=== PATIENT | female | born 1960 | race Caucasian/White ===

== ENCOUNTER → 2019-11-24 13:56 | Outpatient (CLI) | payer OTHER, SELFPAY ==
--- NOTE | ~2019-11-24 | MM_ITS ---
EXAMINATION: MM scrn fish implant BI w jeanne HISTORY: Screening mammogram TECHNIQUE: Craniocaudal and mediolateral oblique 3-D tomosynthesis images with implant displacement a nd synthetic 2-D images were generated. Craniocaudal and mediolateral oblique views of the breasts wi thout implant displacement were obtained using full field digital mammography. CAD analysis was submi tted and interpreted. COMPARISON: 09/23/2018, 06/03/2017, 05/16/2016 BREAST PARENCHYMAL COMPOSITION: There are scattered areas of fibroglandular density. FINDINGS: There is no evidence of suspicious mass, calcification, or architectural distortion to sugg est malignancy in either breast. There has been no suspicious interval change. IMPRESSION: 1. No mammographic evidence of malignancy. 2. Recommend routine screening mammography in one year. BI-RADS Category 1: Negative Reviewed, dictated and finalized at location A.
== END ==
PROVIDERS: Visit Provider Obstetrics & Gynecology
DX: Z12.31 Encounter for screening mammogram for malignant neoplasm of breast (principal)
CPT/HCPCS: 77063; 77067

== ENCOUNTER → 2020-12-06 11:13 | Outpatient (CLI) | payer OTHER, SELFPAY ==
--- NOTE | ~2020-12-06 | MM_ITS ---
EXAMINATION: MM scrn fish implant BI w jeanne HISTORY: Screening mammogram TECHNIQUE: Craniocaudal and mediolateral oblique 3-D tomosynthesis images with implant displacement a nd synthetic 2-D images were generated. Craniocaudal and mediolateral oblique views of the breasts wi thout implant displacement were obtained using full field digital mammography. CAD analysis was submi tted and interpreted. COMPARISON: 11/24/2019, 09/23/2018, 06/03/2017 bilateral implant digital screening mammogram examinations BREAST PARENCHYMAL COMPOSITION: There are scattered areas of fibroglandular density. FINDINGS: Status post bilateral augmentation mammoplasty. There is no evidence of suspicious mass, ca lcification, or architectural distortion to suggest malignancy in either breast. There has been no ragland spicious interval change. IMPRESSION: 1. No mammographic evidence of malignancy. 2. Recommend routine screening mammography in one year. BI-RADS Category 1: Negative Reviewed, dictated and finalized at location A.
== END ==
PROVIDERS: Visit Provider Obstetrics & Gynecology
DX: Z12.31 Encounter for screening mammogram for malignant neoplasm of breast (principal)
CPT/HCPCS: 77063; 77067

== ENCOUNTER → 2022-02-20 14:22 | Outpatient (CLI) | payer OTHER, SELFPAY ==
--- NOTE | ~2022-02-20 | MMUS_ITS ---
EXAMINATION: MM diag fish implant BI w jeanne, US breast LT complete HISTORY: Left nipple inversion since approximately May 2020 TECHNIQUE: Bilateral full field and left spot ML, MLO and CC 3-D tomosynthesis images were performed and synthetic 2-D images were generated. CAD analysis was submitted and interpreted. High resolution complete left breast ultrasound examination including all 4 quadrants and subareolar area was perform ed. COMPARISON: 12/06/2020, 11/24/2019, 09/23/2018 bilateral implant screening mammogram examinations BREAST PARENCHYMAL COMPOSITION: There are scattered areas of fibroglandular density. FINDINGS: MAMMOGRAPHIC FINDINGS: Status post bilateral augmentation mammoplasty. No suspicious mass or architectural distortion, malignant calcification, skin thickening or retractio n or significant new or developing density is detected. ULTRASOUND: No suspicious solid lesion or shadowing or other significant sonographic abnormality of the left natasha st is detected. IMPRESSION: 1. No mammographic evidence of malignancy 2. Routine annual mammographic screening is recommended. BI-RADS Category 1: Negative Reviewed, dictated and finalized at location A. 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 No mammographic evidence of malignancy 2. Routine annual mammographic screening is recommended. BI-RADS Category 1: Negative
== END ==
PROVIDERS: PCP Family Medicine; Visit Provider Obstetrics & Gynecology
DX: N64.59 Other signs and symptoms in breast (principal)
CPT/HCPCS: 76641; 77062; 77066; G0279

== ENCOUNTER 2023-08-08 09:02 | Emergency (ER) | payer OTHER, SELFPAY ==
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
[2023-08-08 09:06] VITALS: BP 135/85; PULSE 76; RESP 18; TEMP 36.5; O2SAT 100
[2023-08-08] MEDS: ACETAMINOPHEN 500 MG TABLET 1000 MG PO (10:09)
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
--- NOTE | 2023-08-27 13:47 | PC.NURSE ---
LATE ENTRY This note is being entered to document information to the patient's record. The following information was omitted on [08/08/23], by [shoaib Cee]. Short arm volar applied to right wrist prior to dc from ED
== END 2023-08-08 12:16 | disposition home or self-care (01) ==
PROVIDERS: Emergency Provider Physician Assistant; PCP Family Medicine
DX: S59.291A Other physeal fracture of lower end of radius, right arm, initial encounter for closed fracture (principal); M19.011 Primary osteoarthritis, right shoulder; M47.812 Spondylosis without myelopathy or radiculopathy, cervical region; V49.40XA Driver injured in collision with unspecified motor vehicles in traffic accident, initial encounter
CPT/HCPCS: 29125; 72050; 73030; 73110; 99284; A4565; A9270

== ENCOUNTER 2023-08-13 13:18 | Outpatient (CLI) | payer OTHER, SELFPAY ==
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
== END 2023-08-13 13:19 ==
LOC: MICIMG 13:19
PROVIDERS: PCP Obstetrics & Gynecology; Visit Provider Obstetrics & Gynecology
DX: Z78.0 Asymptomatic menopausal state (principal); R10.2 Pelvic and perineal pain
CPT/HCPCS: 76830; 76856

== ENCOUNTER 2023-09-30 15:49 | Outpatient (CLI) | payer OTHER, SELFPAY ==
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
== END 2023-09-30 15:50 | disposition home or self-care (01) ==
LOC: ANHIMG 15:54
PROVIDERS: PCP Family Medicine; Visit Provider Physician Assistant Surgical
DX: S52.531D Colles' fracture of right radius, subsequent encounter for closed fracture with routine healing (principal); X58.XXXD Exposure to other specified factors, subsequent encounter
CPT/HCPCS: 73110

== ENCOUNTER 2024-02-23 10:58 | Outpatient (CLI) | payer MEDICARE, SELFPAY ==
--- NOTE | ~2024-02-23 | MM_ITS ---
EXAMINATION: MM scrn fish implant BI w jeanne HISTORY: Screening mammogram TECHNIQUE: Craniocaudal and mediolateral oblique 3-D tomosynthesis images with implant displacement a nd synthetic 2-D images were generated. Craniocaudal and mediolateral oblique views of the breasts wi thout implant displacement were obtained using full field digital mammography. CAD analysis was submi tted and interpreted. COMPARISON: Comparison to multiple prior studies sequentially, with oldest reviewed study dated 05/16. BREAST PARENCHYMAL COMPOSITION: Not dense: There are scattered areas of fibroglandular density. FINDINGS: There are bilateral subpectoral implants which appear to be partially collapsed.. There is no evidence of suspicious mass, calcification, or architectural distortion to suggest malignancy in e ither breast. There has been no suspicious interval change. IMPRESSION: 1. No mammographic evidence of malignancy. 2. Recommend routine screening mammography in one year. BI-RADS Category 1: Negative Reviewed, dictated and finalized at location B. 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
== END 2024-02-23 10:59 | disposition home or self-care (01) ==
LOC: MICIMG 11:03
PROVIDERS: PCP Obstetrics & Gynecology; Visit Provider Obstetrics & Gynecology
DX: Z12.31 Encounter for screening mammogram for malignant neoplasm of breast (principal)
CPT/HCPCS: 77063; 77067

== ENCOUNTER 2024-04-12 10:26 | Outpatient (CLI) | payer MEDICARE, OTHER, SELFPAY ==
--- NOTE | ~2024-04-12 | MR_ITS ---
EXAMINATION: MR breast BI wo/w con INDICATION: Implant rupture TECHNIQUE: Axial VIBRANT pre and dynamic post contrast, Sagittal VIBRANT post contrast, Axial T2 STIR ASSET COMPARISON: Mammography dated 02/23/2024 CONTRAST: Multihance, 12 cc BREAST COMPOSITION: Almost entirely fat FINDINGS: RIGHT BREAST: There is minimal background parenchymal enhancement. No abnormal enhancement is present after contrast administration. No pathologically enlarged axillary or internal mammary lymph nodes a re identified. Subpectoral implant present, without evidence for intracapsular or extracapsular ruptu re. LEFT BREAST: There is minimal background parenchymal enhancement. No abnormal enhancement is present after contrast administration. No pathologically enlarged axillary or internal mammary lymph nodes ar e identified. Subpectoral implant present, without evidence for intracapsular or extracapsular ruptur e. IMPRESSION: No evidence for malignancy. No evidence for intracapsular or extracapsular implant rupture. BI-RADS Category 1: Negative Reviewed, dictated and finalized at [facility]. 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
== END 2024-04-12 10:27 | disposition home or self-care (01) ==
PROVIDERS: PCP Obstetrics & Gynecology; Visit Provider Nurse Practitioner
DX: N64.59 Other signs and symptoms in breast (principal)
CPT/HCPCS: 77049; A9577; C8908

== ENCOUNTER 2024-08-10 10:27 | Outpatient (CLI) | payer MEDICARE, OTHER, SELFPAY ==
--- NOTE | ~2024-08-10 | DEXA_ITS ---
Bone Density Report Name: ROOSEVELT KELLY Age: 64 Sex: Female Ethnicity: White Date of : 1960 Indication: postmenopausal; screening for osteoporosis; height loss; Referring Provider: Jose Eduardo, Deborah Laird Study: Bone densitometry was performed. Exam Date: August 10, 2024 Accession number: [id number] Bone Density: Region BMD T-score Z-score Classification AP Spine(L1-L4) 0.895 -1.4 0.4 Osteopenia Femoral Neck (Left) 0.643 -1.9 -0.3 Osteopenia Total Hip (Left) 0.816 -1.0 0.2 Normal Femoral Neck (Right) 0.616 -2.1 -0.6 Osteopenia Total Hip (Right) 0.789 -1.3 0.0 Osteopenia Total Hip Mean 0.802 -1.2 0.1 Osteopenia World Health Organization criteria for BMD impression classify patients as: Normal (T-score at or above -1.0), Osteopenia (T-score between -1.0 and -2.5), or Osteoporosis (T-score at or below -2.5). 10-year Fracture Risk(1): Major Osteoporotic Fracture 11% Hip Fracture 1.7% Reported Risk Factors: [place] (), Neck BMD=0.616, BMI=25.0 (1) FRAX(R) Version 3.08. Fracture probability calculated for an untreated patient. Fracture probability may be lower if the patient has received treatment. Previous Exams: -- Region Exam Age BMD T-score BMD Change BMD Change Date g/cm2 vs Baseline vs Previous -- AP Spine (L1-L4) 08/10/2024 64 0.895 -1.4 -5.1%* -9.7%* 05/16/2016 56 0.991 -0.5 5.1%* 4.7%* 11/16/2014 54 0.947 -0.9 0.4% -6.3%* 11/13/2012 52 1.011 -0.3 7.2%* 7.2%* 05/23/2010 50 0.943 -0.9 Total Hip(Left) 08/10/2024 64 0.816 -1.0 4.6%* -7.5%* 05/16/2016 56 0.881 -0.5 13.0%* 8.3%* 11/16/2014 54 0.814 -1.0 4.4%* -2.9% 11/13/2012 52 0.838 -0.9 7.5%* 7.5%* 05/23/2010 50 0.780 -1.3 Total Hip(Right) 08/10/2024 64 0.789 -1.3 1.3% -6.5%* 05/16/2016 56 0.844 -0.8 8.4%* 6.7%* 11/16/2014 54 0.791 -1.2 1.6% -6.1%* 11/13/2012 52 0.842 -0.8 8.1%* 8.1%* 05/23/2010 50 0.778 -1.3 -- *Denotes significance at 95% confidence level, LSC for AP Spine = 0.022 g/cm2, LSC for Total Hip = 0.027 g/cm2 Clinical Information Provided by Patient: Has used the following medications: Vitamin D, HRT insert Has the following medical conditions: melanoma twice Patient maximum height was 64 Menopause Age: 45 No regular weight bearing exercise Drinks caffeinated beverages Onset of menses at age 16 Number of children 2 Impression: The patient has low bone mass, based on the Right Femoral Neck T-score. The patient has an estimated ten-year risk of hip fracture of 1.7% and an estimated ten-year risk of major fracture of 11%, based on the WHO FRAX algorithm. The BMD for the AP Spine (L1-L4) decreased, changing by -9.7% since the last DXA exam. The BMD for the Total Hip(Left) decreased, changing by -7.5% since the last DXA exam. The BMD for the Total Hip(Right) decreased, changing by -6.5% since the last DXA exam. Discussion: BONE DENSITY IS LOW AT ONE OR MORE SKELETAL SITES. This patient's lowest T-score is low at one or more skeletal sites. It meets the World Health Organization's (WHO) criteria for “low bone mass” (T-score between -1.0 and -2.5). The patient's 10-year risk of fracture as calculated by FRAX is less than the threshold where pharmacological therapy is recommended by the National Osteoporosis Foundation (NOF). However, all treatment decisions require clinical judgment and consideration of individual patient factors, including patient preferences, comorbidities, previous drug use, risk factors not captured in the FRAX model (e.g., frailty, falls, vitamin D deficiency, increased bone turnover, interval significant decline in bone density) and possible under or overestimation of fracture risk by FRAX. The patient should follow a healthful lifestyle (good nutrition with adequate calcium and vitamin D, and appropriate weight-bearing exercise). Follow-Up: Consider repeating this study in 2 years to reassess this patient's status, or sooner if there is some new clinical indication. Reported by: NENITA on 08/18/2024 12:49:00 PM. Reviewed, dictated and finalized at location A.
== END 2024-08-10 10:28 | disposition home or self-care (01) ==
LOC: MICIMG 10:30
PROVIDERS: PCP Family Medicine; Visit Provider Obstetrics & Gynecology
DX: M85.89 Other specified disorders of bone density and structure, multiple sites (principal); Z78.0 Asymptomatic menopausal state; Z13.820 Encounter for screening for osteoporosis
CPT/HCPCS: 77080

== ENCOUNTER 2024-09-28 11:23 | Outpatient (CLI) | payer MEDICARE, OTHER, SELFPAY ==
--- NOTE | 2024-09-28 | ECG_ITS ---
Test Date: 2024-09-28 12:11:21 Measurements Intervals [place] Rate: 78 P: 40 UT: 192 QRS: 18 QRSD: 78 T: 42 QT: 380 QTc: 433 Interpretive Statements SINUS RHYTHM WITH OCCASIONAL VENTRICULAR PREMATURE COMPLEXES POSSIBLE LEFT ATRIAL ENLARGEMENT [-0.1mV P-WAVE IN V1/V2] No previous ECG available for comparison Electronically Signed On 09-28-2024 18:07:32 CDT by Chris Donahue
--- OUTSIDE RECORDS SUMMARY | 2024-09-28 11:31 | XMS_ITS | Encounter Summary ---
Author Organization [facility] Address [address] [place] [address] Care Team Providers Care Physician Executive Name Role Phone Unavailable Primary Care Provider Unavailabl e Encounter Details Date Type Department Care Team (Late st Contact Info) Description 09/16/2022 Lab Requisition [facility] - DermPath Lab [address] [place] [address] Liz Bear MD [address] [facility] [address] [place] [address] Social History Tobacco Use Types Packs/Day Years Used Date Smoking Tobacco: Never Assessed Comments Unknown Sex and Gender Information Value Date Recorded Sex Assigned at Not on file 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 Gender Identity Not on file Sexual Orientation Not on file documented as of this encounter Plan of Treatment Not on file documented as of this encounter Procedures Procedure Name Priority Date/Time Associated Diagnosis Comments DERMATOPATHOLOGY Routine 09/16/2022 2:46 PM CDT documented in this encounter Results * DERMATOPATHOLOGY (09/16/2022 2:46 PM CDT) Case Report Dermatopathology Report Case: [id number] Authorizing Provider: Liz Bear MD Collected: 09/16/2022 02:46 PM Ordering Location: [facility] DermPath Lab Received: 09/17/2022 12:01 PM Pathologist: Chanel Phillip MD Specimens: A) - Skin, right back B) - Skin, mid chest 4:16 PM CDT DERMATOPATHOLOGY LABORATORY Final Diagnosis Specimen A. SKIN, right back: LICHEN PLANUS-LIKE KERATOSIS (BENIGN LICHENOID KERATOSIS) (L82.1) Specimen B. SKIN, mid chest: LICHEN PLANUS-LIKE KERATOSIS (BENIGN LICHENOID KERATOSIS) (L82.1) 3 4:16 PM CDT DERMATOPATHOLOGY LABORATORY at 1616 CDT Clinical History A-B: R/O BCC; [place] 3 4:16 PM CDT DERMATOPATHOLOGY LABORATORY Gross Description Specimen A: Received is one formalin filled container labeled with the patient's name and designated right back. The specimen consists of a shave biopsy measuring 8x8x1 mm. Jar 0. Specimen B: Received is one formalin filled container labeled with the patient's name and designated mid chest. The specimen consists of a shave biopsy measuring 4x3x1 mm. Jar 0. 3 4:16 PM CDT DERMATOPATHOLOGY LABORATORY Microscopic Description Specimen A. SKIN, right back: The epidermis is mildly acanthotic. There is a lichenoid infiltrate with vacuolar changes of basilar keratinocytes and scattered necrotic keratinocytes. Specimen B. SKIN, mid chest: The epidermis is mildly acanthotic. There is a lichenoid infiltrate with vacuolar changes of basilar keratinocytes and scattered necrotic keratinocytes. 3 4:16 PM CDT DERMATOPATHOLOGY LABORATORY Disclaimer An external and internal positive and negative controls are appropriate for the histochemical, immunohistochemical and immunofluorescence stain(s) in this case (if any), except where stated explicitly. The performance characteristics of the stain(s) cited in this report were developed and its performance characteristic determined by the Dermatopathology Laboratory at [facility], directed by Dr. Letitia Story. These tests need not be, and therefore are not, approved by the [place] Food and Drug Administration. The tests are used for clinical purposes. Billing Codes Specimen Charges Stain Charges 83259 22126 1 1 3 4:16 PM CDT DERMATOPATHOLOGY LABORATORY Embedded Images 3 4:16 PM CDT DERMATOPATHOLOGY LABORATORY Pathology/Cytology TISSUE SPECIMEN FROM SKIN / Unknown 09/16/2022 2:46 PM CDT 09/17/2022 12:01 PM CDT Miscellaneous samples (specimen) TISSUE SPECIMEN FROM SKIN / Unknown 09/16/2022 2:46 PM CDT 09/17/2022 12:01 PM CDT Liz Bear MD LAB - PATHOLOGY/CYTOLOGY ORD ERABLES Final Result DERMATOPATHOLOGY LABORATORY [facility] - Department of Dermatology [facility] [address] [place] [address], [address] [phone] documented in this encounter Visit Diagnoses Not on filedocumented in this encounter
--- OUTSIDE RECORDS SUMMARY | 2024-09-28 11:31 | XMS_ITS | Encounter Summary ---
Author Organization [facility] Address [address] [place] [address] Care Team Providers Care Sales Apprentice Name Role Phone Unavailable Primary Care Provider Unavailabl e Encounter Details Date Type Department Care Team (Late st Contact Info) Description 09/14/2024 Lab Requisition [facility]ician Group - DermPath Lab [address] [facility], [facility] [place] [id number] Liz Bear MD [address] [facility] [address] [place] [address] Social History Tobacco Use Types Packs/Day Years Used Date Smoking Tobacco: Never Assessed Comments Unknown Sex and Gender Information Value Date Recorded Sex Assigned at Not on file Legal Sex Female 5:57 PM [employer] AUTHOR Gender Identity Not on file Sexual Orientation Not on file documented as of this encounter Plan of Treatment Not on file documented as of this encounter Procedures Procedure Name Priority Date/Time Associated Diagnosis Comments DERMATOPATHOLOGY Routine 09/14/2024 11:1 4 AM CDT documented in this encounter Results * DERMATOPATHOLOGY (09/14/2024 11:14 AM CDT) Case Report Dermatopathology Report Case: [id number] Authorizing Provider: Liz Bear MD Collected: 09/14/2024 11:14 AM Ordering Location: [facility] Physician [facility] - Received: 09/15/2024 07:40 AM DermPath Lab Pathologist: Jaye Story MD Specimen: Skin, right chest 4:03 PM CDT DERMATOPATHOLOGY LABORATORY Final Diagnosis Specimen A. SKIN, right chest: MALIGNANT MELANOMA, SUPERFICIAL SPREADING TYPE BRESLOW THICKNESS 0.3 MM, EDER LEVEL III PRESENT AT MARGIN (C43.59) (see microscopic description) Requires the attention of the treating physician. 4:[address] [facility] DERMATOPATHOLOGY LABORATORY at 1603 CDT Clinical History Nevus, SK; R/O MM 4:[address] [facility] DERMATOPATHOLOGY LABORATORY Gross Description Specimen A: Received is one formalin filled container labeled with the patient's name and designated right chest. The specimen consists of a shave biopsy measuring 8x6x1 mm. Jar 0. 4:[address] [facility] DERMATOPATHOLOGY LABORATORY Microscopic Description Specimen A. SKIN, right chest: There is a proliferation melanocytes distributed in an irregular pattern singly and in nests at all levels of the epidermis. In the dermis there are irregular nests and single scattered melanocytes. This lesion is present at the margin of the specimen. 4:[address] [facility] DERMATOPATHOLOGY LABORATORY Disclaimer An external and internal positive and negative controls are appropriate for the histochemical, immunohistochemical and immunofluorescence stain(s) in this case (if any), except where stated explicitly. The performance characteristics of the stain(s) cited in this report were developed and its performance characteristic determined by the Dermatopathology Laboratory at [facility], directed by Dr. Letitia Story. These tests need not be, and therefore are not, approved by the [place] Food and Drug Administration. The tests are used for clinical purposes. Billing Codes Specimen Charges Stain Charges 82526 1 4:[address] [facility] DERMATOPATHOLOGY LABORATORY Embedded Images 4:[address] [facility] DERMATOPATHOLOGY LABORATORY Synoptic Report INVASIVE MELANOMA OF THE SKIN: Biopsy INVASIVE MELANOMA OF THE SKIN: BIOPSY - All Specimens Protocol posted: 06/16/2024 SPECIMEN Procedure: Biopsy, shave Specimen Laterality: Right TUMOR Tumor Site: Skin of trunk: right chest Histologic Type: Low-cumulative sun damage (CSD) melanoma (including superficial spreading melanoma) Maximum Tumor (Breslow) Thickness (Millimeters): At least: 0.3 mm : tumor is present at the surgical margin; therefore, the final depth may exceed the current one. Ulceration: Not identified Anatomic (Eder) Level: At least level III: tumor is present at the surgical margin; therefore, the final depth may exceed the current one. Mitotic Rate: None identified Microsatellite(s): Cannot be determined Lymphatic and / or Vascular Invasion: Not identified Neurotropism: Not identified Tumor-Infiltrating Lymphocytes: Present, non-brisk Tumor Regression: Present MARGINS Margin Status for Melanoma: Melanoma in situ present at margin Margin(s) Involved by Melanoma In Situ: Peripheral 4:03 PM CDT DERMATOPATHOLOGY LABORATORY Pathology/Cytolo gy TISSUE SPECIMEN FROM SKIN / Unknown 09/14/2024 11:14 AM CDT 09/15/2024 7:40 AM CDT us Liz Bear MD LAB - PATHOLOGY/CYTOLOGY ORD ERABLES Final Result DERMATOPATHOLOGY LABORATORY [facility] - Department of Dermatology [facility] Medicine [address] [place] [address], [address] [phone] documented in this encounter Visit Diagnoses Not on filedocumented in this encounter
--- OUTSIDE RECORDS SUMMARY | 2024-09-28 11:31 | XMS_ITS | Encounter Summary ---
Author Organization [facility] Address [address] [place] [address] Care Team Providers Care Tobacco Stripper Name Role Phone Skyler De Paz MD Primary Care Provider [phone] Daniel Serrato MD Unavailable [phone] Sailaja Claudio APRN Primary Care Provider [phone]- [phone] Encounter Details Date Type Department Care Team (Late st Contact Info) Description 03/27/2023 8aweek Message Enc [facility] Medical Group Family & Internal Medicine [address] [address] [place], [facility] Provider Due for routine follow up Social History Tobacco Use Types Packs/Day Years Used Date Smoking Tobacco: Never Smokeless Tobacco: Never Alcohol Use Standard Drinks/Week Comments Yes 0 (1 standard drink = 0.6 oz pur e alcohol) Social AUDIT-C Answer Date Recorded Frequency of Alcohol Consumption 2-4 times a fri04/01/2018 Average Number of Drinks Not on file 019 Frequency of Binge Drinking Not on file 05/2018 PHQ-2 Answer Date Recorded Patient Health Questionnaire-2 Score 3 12/26/2022 Comments No Sex and Gender Information Value Date Recorded Sex Assigned at Female 07/01/2024 6:11 AM CDT Legal Sex Female 7:08 PM CDT Gender Identity Not on file Sexual Orientation Not on file documented as of this encounter Plan of Treatment Not on file documented as of this encounter Visit Diagnoses Not on filedocumented in this encounter Additional Health Concerns Assessment Noted Time PHQ-9 Depression Total Score: 13 12/26/ 023 3:22 PM CDT documented as of this encounter Care Teams Tobacco Stripper Relationship Specialty [place] [address] [place] [address] PCP - General FAMILY PRACTICE 08/30/15 04/23/23 Sailaja Claudio APRN [address] [facility] [address] [place] [address] PCP - General NURSE PRACTITIONER 04/24/23 Daniel Serrato MD [address] [address] [place] [employer] Teacher CARDIOVASCULAR DISEASE 08/30/15 documented as of this encounter
--- OUTSIDE RECORDS SUMMARY | 2024-09-28 11:31 | XMS_ITS | Encounter Summary ---
Author Organization [facility] Address [address] [place] [address] Care Team Providers Care Pattern Shop Supervisor Name Role Phone Daniel Serrato MD Unavailable [phone] Sailaja Claudio APRN Primary Care Provider [phone] Encounter Details Date Type Department Care Team (Late st Contact Info) Description 07/01/2024 MyChart Message Enc [facility] Medical Group Family & Internal Medicine [facility] [address] [place] [address] Sailaja Claudio APRN [id number] [address] Right Hip Social History Tobacco Use Types Packs/Day Years Used Date Smoking Tobacco: Never Smokeless Tobacco: Never Alcohol Use Standard Drinks/Week Comments Yes 3.3 (1 standard drink = 0.6 oz p ure alcohol) Social AUDIT-C Answer Date Recorded Frequency [...] on file documented as of this encounter Functional Status * Calculated C-SSRS Risk Score (Lifetime/Recent) Answer Date of Assessment Author Status No Risk Indicated 07/01/2024 6:16 AM CDT Donna Rodriguez RN Active * [place] Suicide Severity Rating Scale (Screener/Recent Self-Report) Question Answer Date of Assessment Author Status 1. Wish to be (Past 1 Month) No 07/01/2024 6:16 AM CDT Donan Rodriguez RN Active 2. Non-Specific Active Suicidal Thoughts (Past 1 Month) No 07/01/2024 6:16 AM CDT Donna Rodriguez RN Active 6. Suicidal Behavior (Lifetime) No 07/01/2024 6:16 AM CDT Donna Rodriguez RN Active documented as of this encounter Progress Notes * Vinny Rogers MA - 07/05/2024 11:54 AM CDT Pt has appt today 07/05 at 1:20 pm * Sailaja Claudio APRN - 07/05/2024 10:21 AM CDT Noted. She has a f/u visit today * Saima Davies MA - 07/01/2024 2:12 PM CDT Please advise, thank you documented in this encounter Plan of Treatment Not on file documented as of this encounter Visit Diagnoses Not on filedocumented in this encounter Additional Health Concerns Assessment Noted Time PHQ-9 Depression Total Score: 13 12/26/ 023 3:22 PM CDT documented as of this encounter Care Teams Pattern Shop Supervisor Relationship Specialty Start Date End Date Sailaja Claudio APRN [id number] [id number] PCP - General NURSE PRACTITIONER 04/24/23 Daniel Serrato MD [facility]. [address] [address] [place] Filler Block Inserter Remover CARDIOVASCULAR DISEASE 08/30/15 documented as of this encounter
--- OUTSIDE RECORDS SUMMARY | 2024-09-28 11:31 | XMS_ITS | Encounter Summary ---
Author Organization [facility] Address [address] [place] [address] Care Team Providers Care Neonatal Icu Coordinator Name Role Phone Daniel Serrato MD Unavailable [phone] Sailaja Claudio APRN Primary Care Provider [phone] Encounter Details Date Type Department Care Team (Late st Contact Info) Description 07/23/2024 Screwpulpt Message Enc [facility] Medical Group Family & Internal Medicine [facility] [address] [place] [address] Sailaja Claudio APRN [id number] [address] MRI Results Social History Tobacco Use Types Packs/Day Years Used Date Smoking Tobacco: Never Smokeless Tobacco: Never Alcohol Use Standard Drinks/Week Comments Yes 3.3 (1 standard drink = 0.6 oz p ure alcohol) Social AUDIT-C Answer Date Recorded Frequency of Alcohol Consumption 2-4 times a mon 04/01/2018 Average Number of Drinks Not on file [...] documented as of this encounter Care Teams Neonatal Icu Coordinator Relationship Specialty Start Date End Date Sailaja Claudio APRN [id number] [address] PCP - General NURSE PRACTITIONER 04/24/23 Daniel Serrato MD [address] [address] [address] Tender CARDIOVASCULAR DISEASE 08/30/15 documented as of this encounter
--- OUTSIDE RECORDS SUMMARY | 2024-09-28 11:31 | XMS_ITS | Clinical Summary ---
Author Organization [facility] Address [address] [place] [address] Care Team Providers Care Tool And Die Manager Name Role Phone Unavailable Primary Care Provider Unavailabl e Source Comments [facility],non-owned Affiliates and Associated Physician Practices is amultiple site organization consisting of ambulatory clinics and hospital sitesin [place], [place], [place] and [place]. This disclosure is being madepursuant to the Care Everywhere program and may not contain all information available regarding this patient. Last updated 17.[facility] Encounters Date Type Department Care Team Description 09/14/2024 Lab Requisition [facility] Physician Group - DermPath Lab [address] [place] [address] Liz Bear MD from Last 3 Months Social History Tobacco Use Types Packs/Day Years Used Date Smoking Tobacco: Never Assessed Comments Unknown Sex and Gender Information Value Date Recorded Sex Assigned at Not on file Legal Sex Female 5:57 PM [employer] Gender Identity Not on file Sexual Orientation Not on file Plan of Treatment Health Maintenance Due Date Last Done Comments BONE DENSITY TESTING 1959 COLOGUARD (AGES 45-75) - COL ON CA SCREENING 1959 COLON MONITORING 1959 COLONOSCOPY - COLON CA SCREENING 1959 CT COLONOGRAPHY - COLON CA SCREENING 1959 Colorectal Cancer Screening 1959 FIT - COLON CA SCREENING 1959 FLEX SIG - COLON CA SCREENING 1959 LIPID TESTING 1959 MAMMOGRAM 1959 HIV SCREENING 1974 HEPATITIS C SCREENING 12/28/1976 DTAP/TDAP/TD VACCINES (1 - Tdap) 1978 PAP SMEAR 01/03/1980 PNEUMOCOCCAL VACCINE 50+ (1 of 1 - PCV) 2009 ZOSTER VACCINE (1 of 2) 2009 COVID-19 VACCINE (2023-2 5 season) 2023 DEPRESSION SCREENING 03/31/2024 INFLUENZA VACCINE (Season Ended) 2024 Respiratory Syncytial Virus (RSV) Vaccine Pt: or over 60 yrs (1 - 1-dose 75+ series) 2034 HEPATITIS B VACCINE Aged Out No longe r eligible based on patient's age to complete this topic HIB VACCINE Aged Out No longer eligi ble based on patient's age to complete this topic HPV VACCINE Aged Out No longer eligi ble based on patient's age to complete this topic MENINGOCOCCAL (Group B) VACC INE SHARED DECISION-MAKING Aged Out No longer eligibl e based on patient's age to complete this topic MENINGOCOCCAL GROUPS A/C/Y/W VACCINE Aged Out No longer eligible b ased on patient's age to complete this topic Procedures Procedure Name Priority Date/Time Associated Diagnosis Comments DERMATOPATHOLOGY Routine 09/14/2024 11:1 4 AM CDT from Last 3 Months Results * DERMATOPATHOLOGY (09/14/2024 11:14 AM CDT) Case Report Dermatopathology Report Case: [id number] Authorizing Provider: Liz Bear MD Collected: 09/14/2024 11:14 AM Ordering Location: [facility] - Received: 09/15/2024 07:40 AM DermPath Lab Pathologist: Jaye Story MD Specimen: Skin, right chest 4:03 PM CDT DERMATOPATHOLOGY LABORATORY Final Diagnosis Specimen A. SKIN, right chest: MALIGNANT MELANOMA, SUPERFICIAL SPREADING TYPE BRESLOW THICKNESS 0.3 MM, EDER LEVEL III PRESENT AT MARGIN (C43.59) (see microscopic description) Requires the attention of the treating physician. 4:03 PM CDT DERMATOPATHOLOGY LABORATORY at 1603 CDT Clinical History Nevus, SK; R/O MM 4:03 PM CDT DERMATOPATHOLOGY LABORATORY Gross Description Specimen A: Received is one formalin filled container labeled with the patient's name and designated right chest. The specimen consists of a shave biopsy measuring 8x6x1 mm. Jar 0. 5 4:03 PM [facility] DERMATOPATHOLOGY LABORATORY Microscopic Description Specimen A. SKIN, right chest: There is a proliferation melanocytes distributed in an irregular pattern singly and in nests at all levels of the epidermis. In the dermis there are irregular nests and single scattered melanocytes. This lesion is present at the margin of the specimen. 5 4:03 PM [facility] DERMATOPATHOLOGY LABORATORY Disclaimer An external and internal positive and negative controls are appropriate for the histochemical, immunohistochemical and immunofluorescence stain(s) in this case (if any), except where stated explicitly. The performance characteristics of the stain(s) cited in this report were developed and its performance characteristic determined by the Dermatopathology Laboratory at [facility], directed by Dr. Letitia Story. These tests need not be, and therefore are not, approved by the [place] Food and Drug Administration. The tests are used for clinical purposes. Billing Codes Specimen Charges Stain Charges 78897 1 5 4:03 PM [facility] DERMATOPATHOLOGY LABORATORY Embedded Images 5 4:03 PM [facility] DERMATOPATHOLOGY LABORATORY Synoptic Report INVASIVE MELANOMA OF [...] Margin(s) Involved by Melanoma In Situ: Peripheral 5 4:03 PM [facility] DERMATOPATHOLOGY LABORATORY Pathology/Cytolo gy TISSUE SPECIMEN FROM SKIN / Unknown 09/14/2024 11:14 AM CDT 09/15/2024 7:40 AM CDT us Liz Bear MD LAB - PATHOLOGY/CYTOLOGY ORD ERABLES Final Result DERMATOPATHOLOGY LABORATORY [facility] - Department of Dermatology [address] [place] [address], [facility] [phone] from Last 3 Months Insurance [employer]
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
--- OUTSIDE RECORDS SUMMARY | 2024-09-28 11:31 | XMS_ITS | Clinical Summary ---
Author Organization [facility] Address [address] [place] [address] Care Team Providers Care Waitstaff Name Role Phone Daniel Serrato MD Unavailable [phone] Zachary Claudio APRN Primary Care Provider [phone] Allergies No known active allergies Medications vitamin C 500 MG tablet Take 2 tablets (1,000 mg total) by mouth daily. 7 Active B Complex-C Tab tablet Take 1 tablet by mouth daily. Active D-MANNOSE ORIndications:P RN Take 1 capsule by mouth every other day. Indications: PRN Active Vitamin D-Vitamin K (VITAMIN K2-VITAMIN D3 OR) Take 125 mcg by mouth. Active aspirin 81 MG chewable tablet Chew 1 tablet (81 mg total) by mouth daily. Active amitriptyline (ELAVIL) 10 MG tabletIndicatio ns:Anxiety Take 0.5 tablets (5 mg total) by mouth nightly at bedtime. 90 tablet 2 4 Active Additional Information Patient taking differently: 2.5 mgOral Nightly at bedtime, Reported on 07/05/2024 estradiol (ESTRACE) 0.1 MG/GM vaginal creamIndication s:Atrophic vaginitis Place 2 g vaginally once a week. Apply a pea sized amount to vaginal opening once weekly 42.5 g 1 4 Active naproxen (NAPROSYN) 500 MG tablet Take 1 tablet (500 mg total) by mouth 2 (two) times daily with meals. 60 tablet 5 Active traMADol (ULTRAM) 50 MG tabletIndicatio ns:Acute Pain < 7 Day Supply Take 1 tablet (50 mg total) by mouth every 6 (six) hours as needed for Pain. Indications: Acute Pain < 7 Day Supply 28 tablet 5 Active Active Problems Problem Noted Date Diagnosed Date Recurrent UTI 11/14/2017 Wears glasses 01/30/2017 Overview (03/06/2018): Description: for reading Lumbar strain 04/19/2016 Hyperlipidemia 11/03/2015 Osteopenia 11/03/2015 Overview (03/06/2018): Transitioned From: Osteoporosis Malignant melanoma of back ([facility]) 02/2016 Anxiety 12/21/2012 Encounters Date Type Department Care Team Description 08/10/2024 Scan HEALTH INFO SRVCS Scanned, Doc Med Group Bone Density Report (SCAN) 08/10/2024 Telephone [facility] Family & Internal [address] [phone] Zachary Claudio APRN Record Request 08/08/2024 Results Follow-Up [facility] & Internal [address] [address] Zachary Claudio APRN MRI LUMB SPINE WO CON 08/07/2024 12:45 PM CDT - 08/07/2024 11:59 PM CDT Hospital Encounter [facility] [address] [place] [address] Zachary Claudio APRN Discharge Disposition: Home or Self Care (Routine Discharge) 08/07/2024 Travel 07/29/2024 Results Follow-Up [facility] Internal [address] [address] Zachary Claudio APRN MRI HIP RT WO CON 07/27/2024 MyChart Message Enc [facility] Family & Internal [address] [phone] Zachary Claudio APRN MRI Results 07/23/2024 MyChart Message Enc [facility] & Internal [facility] [address] [place] [phone] Zachary Claudio APRN MRI Results 07/19/2024 7:46 AM CDT - 07/19/2024 11:59 PM CDT Hospital Encounter [facility] MRI [address] [place] [address] Zachary Claudio APRN Discharge Disposition: Home or Self Care (Routine Discharge) 07/19/2024 Travel 07/06/2024 MyChart Message Enc [facility] Internal [facility] [address] [place] [phone] Zachary Claudio APRN Numbness and Pain 07/05/2024 1:20 PM CDT Office Visit [facility] Internal [facility] [id number] [place] [phone] Zachary Claudio, ARNALDO ER F/U (Pt states something popped in her lower spine and was in a lot of pain and went to [facility] ) 07/05/2024 Travel 07/01/2024 6:12 AM CDT - 07/01/2024 8:31 AM CDT Emergency [facility] Emergency Room [address] [place] [address] Kavin Ledesma MD Hip Pain Discharge Disposition: Home or Self Care (Routine Discharge) 07/01/2024 Orders Only [facility] & Internal [facility] [address] [place] [address] Zachary Claudio APRN 07/01/2024 MyChart Message Enc [facility] Internal [address] [phone] Zachary Claudio APRN Left Foot 07/01/2024 MyChart Message Enc [facility] Family & Internal Medicine [facility] [address] [place] [address] Zachary Claudio, TILLER MAN Right Hip 07/01/2024 Travel from Last 3 Months Immunizations Immunization Administration Dates Next Due Fluzone 6 Months+ Quad (0.5 mL Prefilled Syringe) 01/24/2021,01/03/2020 Influenza Adult (Generic) 12/27/2021,01/30/2017 PFIZER COVID-19 (ORIGINAL FO RMULATION, PURPLE CAP) mRNA, LNP-S, PF, 30 MCG/0.3 ML DOSE 04/12/2021,07/09/2020,06/13/2020 Tdap (Generic) 12/27/2021,04/15/2012 Family History Medical History Relation Comments Cancer Father Liver Cancer Alzheimers Mother Hypertension Mother Diabetes Paternal Uncle Cancer Sister Breast Cancer Relation Status Comments Father Mother Paternal Uncle Sister Alive Social History Tobacco Use Types Packs/Day Years Used Date Smoking Tobacco: Never Smokeless Tobacco: Never Tobacco Cessation:Counseling Given: No Alcohol Use Standard Drinks/Week Comments Yes 3.3 (1 standard drink = 0.6 oz p ure alcohol) Social AUDIT-C Answer Date Recorded Frequency of Alcohol Consumption 2-4 times a mon th 04/01/2018 Average Number of Drinks Not on file 019 Frequency of Binge Drinking Not on file 05/2018 PHQ-2 Answer Date Recorded Patient Health Questionnaire-2 Score 3 12/26/2022 Comments No Sex and Gender Information Value Date Recorded Sex Assigned at Female 07/01/2024 6:11 AM CDT Legal Sex Female 7:08 PM CDT Gender Identity Not on file Sexual Orientation Not on file Last Filed Vital Signs Vital Sign Reading Time Taken Comments Blood Pressure 120/75 07/05/2024 1:24 PM CDT Pulse 87 07/05/2024 1:24 PM CDT Temperature 36.9 C (98.5 F) 07/05/2024 1:24 PM CDT Respiratory Rate 16 07/05/2024 1:24 PM CDT Oxygen Saturation 97% 07/05/2024 1:24 PM CDT Inhaled Oxygen Concentration - - Weight 60.3 kg (133 lb) 07/05/2024 1:24 PM CDT Height 160 cm (5' 3) 07/05/2024 1:24 PM CDT Body Mass Index 23.56 07/05/2024 1:24 PM CDT Plan of Treatment Health Maintenance Due Date Last Done Comments Hepatitis C 1977 Pneumococcal Vaccine: 50+ Years (1 of 1 - PCV) 2009 Zoster Vaccines (1 of 2) 2009 COVID-19 Vaccine (4 - season) 2023 04/12/2021, 07/09/2020, 06/13/2020 PHQ-2 (Physician Cheesh-Na) 03/31/2024 12/26/2022 Mammogram Screening 02/22/2026 02/23/2024, 02/20/2022, 12/06/2020, Additional history exists Colorectal Cancer Screening Colonoscopy (10 Years) 01/31/2031 01/31/2021, 01/31/2021, 05/29/2017 DTaP, Tdap and Td Vaccines (3 - Td or Tdap) 12/28/2031 12/27/2021, 04/15/2012 RSV Immunization or 60+ Years (1 - 1-dose 75+ series) 2034 Dexa Scan (General) Completed 08/10/2024, Meningococcal B Vaccine Aged Out No l onger eligible based on patient's age to complete this topic Meningococcal Vaccine Aged Out No annabella markel eligible based on patient's age to complete this topic RSV Immunizations Under 20 Months Aged Out No longer eligible based on patient's age to complete this topic Procedures Procedure Name Priority Date/Time Associated Diagnosis Comments BONE DENSITY GENERIC (SCAN ORDER) 08/10/2024 BONE DENSITY GENERIC (SCAN ORDER) 08/10/2024 MRI LUMB SPINE WO CON Routine 08/07/2024 1:13 PM CDT Right hip pain Low back pain MRI HIP RT WO CON Routine 07/19/2024 8:5 8 AM CDT Right hip pain XR PELVIS+RT HIP 2V STAT 07/01/2024 6 :52 AM CDT MAMMOGRAM GENERIC (SCAN ORDER) 02/23/2024 COLONOSCOPY Routine 01/31/2021 10:00 AM CDT from Last 3 Months or Most Recently Relevant to Health Maintenance Results * BONE DENSITY GENERIC (SCAN ORDER) (08/10/2024) Only the most recent of2 resultswithin the time period is included. Anatomical Region Laterality Modality Other 08/10/2024 us Doc [facility] Scanned SCANNING Final Resu lt * MRI LUMB SPINE WO CON (08/07/2024 1:13 PM CDT) Anatomical Region Laterality Modality Spine Magnetic Resonan ce 08/08/2024 1:05 AM CDT Impressions 08/08/2024 1:15 AM CDT IMPRESSION: 1) Multilevel degenerative changes including facet disease worse at L4-L5-S1 levels. 2. L4-5: Diffuse bulge and moderate central disc protrusion with small extrusion as described near the center associated with at least moderate narrowing of the lateral recesses and the central canal and mild narrowing of the neural foramen on the right. 3. L5-S1: Degenerative changes at the facets with moderate to severe degree and moderate diffuse bulge worse along the left posterolateral aspects with endplate hypertrophy narrowing the left neural foramen. Borderline size of the central canal. Small disc protrusion left to the midline. 4. In the upper and mid lumbar levels mild degenerative changes as described with mild disc bulge at L3-4, L2-3 and mild narrowing of the left neural foramen at L3-4.. Referred By: ZACHARY CLAUDIO Interpreted By: Carrington Fields MD, 08/08/2024 1:05 AM Narrative 08/08/2024 1:15 AM CDT [address] [address] Examination: MRI LUMB SPINE WO CON Exam time: 08/07/2024 12:55 PM Clinical history: Right hip pain. History of fracture of the left foot and discomfort in the low back and the right hip. Limited range of motion with numbness and paresthesias. Comparison: No previous. Technique: Routine imaging without contrast. Findings: The height of the lumbar vertebra are well-maintained. There are no acute signal changes in the lumbar vertebra. There are no pars defects. There is mild subtle scoliosis which may be positional or due to spasm. In the lower thoracic levels mild degenerative changes including at T11-T12 where there is mild disc bulging the partially included interspace and small right paracentral protrusion with no mass effect on the spinal cord. No stenosis. L1-L2: Mild degenerative changes with mild facet disease. No significant disc abnormalities or stenosis of the neural foramen on the central canal. L2-3: Mild hypertrophy of the ligaments and the facets. Mild degenerative changes. Subtle mild disc bulge with no significant stenosis of the central canal. Borderline size of the lateral recesses and the right neural foramen. There is subtle mild right posterolateral bulge. L3-4: Degenerative changes with mild hypertrophy of the facets and mild to moderate thickening of the ligaments. There is moderate diffuse bulge with posterolateral endplate spondylosis worse on the left. There is mild narrowing of the lateral recesses and the central canal with mild flattening of the dural sac as seen on axial image #25 and 26. There is mild narrowing of the neural foramen worse on the left. L4-5: More pronounced degenerative changes with moderate hypertrophy of the ligaments and the facets. There is diffuse bulge and moderate central disc protrusion with small extrusion as seen on sagittal image #9 and axial image #32. There is at least moderate narrowing of the lateral recesses and the central canal as seen on axial images numbered 31-32 and on the sagittal image #8 and 9. There is mild narrowing of the neural foramen on the right. L5-S1: Degenerative changes at the facets of moderate to severe degree. There is minimal grade 1 anterolisthesis and moderate diffuse disc bulge worse at along the left posterolateral aspect of the interspace with endplate hypertrophy with mild to moderate narrowing and deformity of the left neural foramen. The size of the central canal is borderline. There is a small disc protrusion left to the midline. Within the dural sac no abnormal signal. There is an arachnoid cyst in the sacral central canal right to the midline measuring about 8 mm. The distal spinal cord is within normal limits. The visualized paraspinal soft tissues are unremarkable. Procedure Note Carrington Fields MD - 08/08/2024 [facility] [address] [place], [place] [address] Examination: MRI LUMB SPINE WO CON Exam time: 08/07/2024 12:55 PM Clinical history: Right hip pain. History of fracture of the left foot anddiscomfort in the low back and the right hip. Limited range of motion withnumbness and paresthesias. Comparison: No previous. Technique: Routine imaging without contrast. Findings: The height of the lumbar vertebra are well-maintained. There areno acute signal changes in the lumbar vertebra. There are no pars defects.There is mild subtle scoliosis which may be positional or due to spasm. In the lower thoracic levels mild degenerative changes including [id number] where there is mild disc bulging the partially included interspaceand small right paracentral protrusion with no mass effect on the spinalcord. No stenosis. L1-L2: Mild degenerative changes with mild facet disease. No significantdisc abnormalities or stenosis of the neural foramen on the centralcanal. L2-3: Mild hypertrophy of the ligaments and the facets. Mild degenerativechanges. Subtle mild disc bulge with no significant stenosis of thecentral canal. Borderline size of the lateral recesses and the rightneural foramen. There is subtle mild right posterolateral bulge. L3-4: Degenerative changes with mild hypertrophy of the facets and mild tomoderate thickening of the ligaments. There is moderate diffuse bulge withposterolateral endplate spondylosis worse on the left. There is mildnarrowing of the lateral recesses and the central canal with mildflattening of the dural sac as seen on axial image #25 and 26. There ismild narrowing of the neural foramen worse on the left. L4-5: More pronounced degenerative changes with moderate hypertrophy ofthe ligaments and the facets. There is diffuse bulge and moderate centraldisc protrusion with small extrusion as seen on sagittal image #9 andaxial image #32. There is at least moderate narrowing of the lateralrecesses and the central canal as seen on axial images numbered 31-32 andon the sagittal image #8 and 9. There is mild narrowing of the neuralforamen on the right. L5-S1: Degenerative changes at the facets of moderate to severe degree.There is minimal grade 1 anterolisthesis and moderate diffuse disc bulgeworse at along the left posterolateral aspect of the interspace withendplate hypertrophy with mild to moderate narrowing and deformity of theleft neural foramen. The size of the central canal is borderline. There cinthya small disc protrusion left to the midline. Within the dural sac no abnormal signal. There is an arachnoid cyst in thesacral central canal right to the midline measuring about 8 mm. The distalspinal cord is within normal limits. The visualized paraspinal softtissues are unremarkable. IMPRESSION: 1) Multilevel degenerative changes including facet disease worse atL4-L5-S1 levels. 2. L4-5: Diffuse bulge and moderate central disc protrusion with smallextrusion as described near the center associated with at least moderatenarrowing of the lateral recesses and the central canal and mild narrowingof the neural foramen on the right. 3. L5-S1: Degenerative changes at the facets with moderate to severedegree and moderate diffuse bulge worse along the left posterolateralaspects with endplate hypertrophy narrowing the left neural foramen.Borderline size of the central canal. Small disc protrusion left to themidline. 4. In the upper and mid lumbar levels mild degenerative changes asdescribed with mild disc bulge at L3-4, L2-3 and mild narrowing of theleft neural foramen at L3-4.. Referred By: ZACHARY CLAUDIO Interpreted By: Carrington Fields MD, 08/08/2024 1:05 AM us Zachary Claudio TILLER MAN MRI Final Resu lt * MRI HIP RT WO CON (07/19/2024 8:58 AM CDT) Anatomical Region Laterality Modality Hip Magnetic Resonan ce 07/25/2024 5:57 PM CDT Impressions 07/25/2024 6:02 PM CDT IMPRESSION: 1. NO EVIDENCE OF ACUTE RIGHT HIP ABNORMALITY IS DEMONSTRATED. IF CLINICALLY INDICATED, THERE IS MILD SOFT TISSUE EDEMA ASSOCIATED WITH THE INSERTIONS OF THE RIGHT GLUTEUS MINIMUS AND MEDIUS TENDONS ON THE RIGHT GREATER TROCHANTER SUGGESTING MILD CHRONIC TENDINITIS. CORRELATION WITH MRI LUMBAR SPINE MAY BE HELPFUL IN FURTHER EVALUATION. Signed: Delmar Kenney MD Referred By: ZACHARY CLAUDIO Interpreted By: Delmar Kenney MD, 07/25/2024 5:57 PM Narrative 07/25/2024 6:02 PM CDT [facility] [address] [place] [address] PATIENT NAME: ROOSEVELT KELLY EXAM: MRI right hip without contrast DATE OF EXAM: 07/19/2024 COMPARISON EXAM: Right hip radiographs 07/01/2024 INDICATION: Chronic right hip pain, pain radiating down right leg. TECHNIQUE: Coronal T1 and STIR images of the pelvis and hips obtained. Axial, sagittal and coronal fat-suppressed proton-density images right hip. Axial and coronal T1-weighted images also obtained through the right hip. No intravenous contrast. FINDINGS: Images through the pelvis demonstrate no definite evidence of pelvic mass or adenopathy. No acute inflammatory change nor abscess. SI joints and pubic symphysis are unremarkable. There are no significant marrow replacing mass lesions noted involving the pelvic bones. There is no evidence of right femoral head AVN. Marrow signal in the right femoral head and acetabulum is normal. No significant right hip joint effusion. There is no definite evidence of acute right hip labral tear nor paravertebral cyst. The right iliofemoral ligament is unremarkable. There is some mild soft tissue edema associated with the insertions of the right gluteus minimus and gluteus medius tendons on the right greater trochanter suggesting mild chronic tendinitis. No significant fluid in the trochanteric bursa. The right hamstring origin is unremarkable. Procedure Note Delmar Kenney MD - 07/25/2024 [facility] [address] [place] [address] PATIENT NAME: ROOSEVELT KELLY EXAM: MRI right hip without contrast DATE OF EXAM: 07/19/2024 COMPARISON EXAM: Right hip radiographs 07/01/2024 INDICATION: Chronic right hip pain, pain radiating down right leg. TECHNIQUE: Coronal T1 and STIR images of the pelvis and hips obtained.Axial, sagittal and coronal fat-suppressed proton-density images righthip. Axial and coronal T1-weighted images also obtained through the righthip. No intravenous contrast. FINDINGS: Images through the pelvis demonstrate no definite evidence ofpelvic mass or adenopathy. No acute inflammatory change nor abscess. SIjoints and pubic symphysis are unremarkable. There are no significantmarrow replacing mass lesions noted involving the pelvic bones. There is no evidence of right femoral head AVN. Marrow signal in theright femoral head and acetabulum is normal. No significant right hipjoint effusion. There is no definite evidence of acute right hip labraltear nor paravertebral cyst. The right iliofemoral ligament isunremarkable. There is some mild soft tissue edema associated with theinsertions of the right gluteus minimus and gluteus medius tendons on theright greater trochanter suggesting mild chronic tendinitis. Nosignificant fluid in the trochanteric bursa. The right hamstring originis unremarkable. IMPRESSION: 1. NO EVIDENCE OF ACUTE RIGHT HIP ABNORMALITY IS DEMONSTRATED. IFCLINICALLY INDICATED, THERE IS MILD SOFT TISSUE EDEMA ASSOCIATED WITH THEINSERTIONS OF THE RIGHT GLUTEUS MINIMUS AND MEDIUS TENDONS ON THE RIGHTGREATER TROCHANTER SUGGESTING MILD CHRONIC TENDINITIS. CORRELATION WITHMRI LUMBAR SPINE MAY BE HELPFUL IN FURTHER EVALUATION. Signed: Delmar Kenney MD Referred By: ZACHARY CLAUDIO Interpreted By: Delmar Kenney MD, 07/25/2024 5:57 PM us Zachary Claudio TILLER MAN MRI Final Resu lt * XR PELVIS+RT HIP 2V (07/01/2024 6:52 AM CDT) Anatomical Region Laterality Modality Hip, Pelvis Radiographic Adilene ging 07/01/2024 6:58 AM CDT Impressions 07/01/2024 7:01 AM CDT IMPRESSION: 1. No acute fracture or dislocation. 2. Mild degenerative spurring laterally in bilateral acetabula. 3. Chronic degenerative changes in the partially included lower lumbar spine. Referred By: Interpreted By: Miriam Valdes MD, 07/01/2024 6:58 AM Narrative 07/01/2024 7:01 AM CDT [address] [place] [address] EXAMINATION: AP Pelvis and AP and Frogleg Lateral Radiographs of the Right Hip, 3 Views. INDICATION: Pain in the right hip. COMPARISON: None. FINDINGS: No acute fracture or dislocation. No radiopaque foreign body. No significant soft tissue swelling. Bilateral sacroiliac joints and pubic symphysis are intact. Mild degenerative spurring laterally and bilateral acetabula. Chronic degenerative changes in the partially included lower lumbar spine. Calcified phleboliths in the pelvis. Procedure Note Miriam Valdes MD - 07/01/[address] [place] [address] EXAMINATION: AP Pelvis and AP and Frogleg Lateral Radiographs of theRight Hip, 3 Views. INDICATION: Pain in the right hip. COMPARISON: None. FINDINGS: No acute fracture or dislocation. No radiopaque foreign body. Nosignificant soft tissue swelling. Bilateral sacroiliac joints and pubicsymphysis are intact. Mild degenerative spurring laterally and bilateralacetabula. Chronic degenerative changes in the partially included lowerlumbar spine. Calcified phleboliths in the pelvis. IMPRESSION: 1. No acute fracture or dislocation. 2. Mild degenerative spurring laterally in bilateral acetabula. 3. Chronic degenerative changes in the partially included lower lumbarspine. Referred By: Interpreted By: Miriam Valdes MD, 07/01/2024 6:58 AM Kavin Ledesma MD GENERAL IMAGING Final Result * MAMMOGRAM GENERIC (SCAN ORDER) (02/23/2024) Anatomical Region Laterality Modality Other 02/23/2024 [facility] Scanned SCANNING Final Resu lt * Colonoscopy (05/29/2017 12:00 AM BEAD WORK[employer] SEWING) 05/29/2017 05/29/2017 Narrative [facility] TO EPIC CONVERSION - 05/29/2017 12:00 AM [employer] WORK[employer] SEWING Documented hx of procedure Procedure Note Elsa Lugo MD - 02/01/2018 Documented hx of procedure us Generic Conversion Md [facility] GI PROCEDURE ORDERABLES Final Result [facility] TO EPIC CONVERSION from Last 3 Months or Most Recently Relevant to Health Maintenance Insurance [facility] MEDICARE [facility] Care Teams Waitstaff Relationship Specialty Start Date End Date Zachary Claudio APRN [id number] [address] PCP - General NURSE PRACTITIONER 04/24/23 Daniel Serrato MD [address] [address] [place] Breastfeeding Educator CARDIOVASCULAR DISEASE 08/30/15
--- OUTSIDE RECORDS SUMMARY | 2024-09-28 11:31 | XMS_ITS | Encounter Summary ---
Author Organization [facility] Address [address] [facility] [place] [address] Care Team Providers Care Event Mgr Name Role Phone Unavailable Primary Care Provider Unavailabl e Encounter Details Date Type Department Care Team (Late st Contact Info) Description 04/30/2023 Lab Requisition [facility] - DermPath Lab [address] [facility] [place] [address] Liz Bear MD [address] [facility] [address] [place] [address] Social History Tobacco Use Types Packs/Day Years Used Date Smoking Tobacco: Never Assessed Comments Unknown Sex and Gender Information Value Date Recorded Sex Assigned at Not on file Legal Sex Female 5:57 PM UTILITY SERVICE WORKER Gender Identity Not on file Sexual Orientation Not on file documented as of this encounter Plan of Treatment Not on file documented as of this encounter Procedures Procedure Name Priority Date/Time Associated Diagnosis Comments DERMATOPATHOLOGY Routine 04/30/2023 2:37 PM UTILITY SERVICE WORKER documented in this encounter Results * DERMATOPATHOLOGY (04/30/2023 2:37 PM UTILITY SERVICE WORKER) Case Report Dermatopathology Report Case: [id number] Authorizing Provider: Liz Bear MD Collected: 04/30/2023 02:37 PM Ordering Location: [facility] DermPath Lab Received: 05/02/2023 08:21 AM Pathologist: Chanel Phillip MD Specimen: Skin, right thigh 2:28 PM UTILITY SERVICE WORKER DERMATOPATHOLOGY LABORATORY Final Diagnosis Specimen A. SKIN, right thigh: ACTINIC KERATOSIS (L57.0) 4 2:28 PM UTILITY SERVICE WORKER DERMATOPATHOLOGY LABORATORY at 1428 UTILITY SERVICE WORKER Clinical History R/o BCC 2:28 PM [facility] DERMATOPATHOLOGY LABORATORY Gross Description Specimen A: Received is one formalin filled container labeled with the patient's name and designated right thigh. The specimen consists of a shave biopsy measuring 6x5x1 mm. Jar 0. 2:28 PM [facility] DERMATOPATHOLOGY LABORATORY Microscopic Description Specimen A. SKIN, right thigh: There is focal parakeratosis. The lower half of the epidermis shows disorderly maturation of keratinocytes with nuclear pleomorphism. 2:28 PM [facility] DERMATOPATHOLOGY LABORATORY Disclaimer An external and internal positive and negative controls are appropriate for the histochemical, immunohistochemical and immunofluorescence stain(s) in this case (if any), except where stated explicitly. The performance characteristics of the stain(s) cited in this report were developed and its performance characteristic determined by the Dermatopathology Laboratory at [facility], directed by Dr. Letitia Story. These tests need not be, and therefore are not, approved by the [place] Food and Drug Administration. The tests are used for clinical purposes. Billing Codes Specimen Charges Stain Charges 73362 1 4 2:28 PM [facility] DERMATOPATHOLOGY LABORATORY Embedded Images 2:28 PM [facility] DERMATOPATHOLOGY LABORATORY Pathology/Cytolo gy TISSUE SPECIMEN FROM SKIN / Unknown 04/30/2023 2:37 PM UTILITY SERVICE WORKER 05/02/2023 8:21 AM UTILITY SERVICE WORKER us Liz Bear MD LAB - PATHOLOGY/CYTOLOGY ORD ERABLES Final Result DERMATOPATHOLOGY LABORATORY [facility] - Department of Dermatology [address], [address] [phone] documented in this encounter Visit Diagnoses Not on filedocumented in this encounter
--- OUTSIDE RECORDS SUMMARY | 2024-09-28 11:31 | XMS_ITS | Encounter Summary ---
Author Organization [facility] Address [address] [place] [address] Care Team Providers Care Tax Compliance Agent Name Role Phone Daniel Serrato MD Unavailable [phone] Sailaja Claudio APRN Primary Care Provider [phone] Encounter Details Date Type Department Care Team (Late st Contact Info) Description 07/27/2024 MyChart Message Enc [facility] Family & Internal Medicine [facility] [address] [place] [address] Sailaja Claudio APRN [id number] [address] MRI Results Social History Tobacco [...] on file documented as of this encounter Progress Notes * Vinny Rogers MA - 07/30/2024 8:21 AM CDT See other my chart message regarding MRI. * Sailaja Claudio APRN - 07/29/2024 7:57 PM CDT Hip imaging results are within chart. Please call patient and update her with plan. Okay to place order for MRI of lumbar spine if she is agreeable. -We will await DEXA scan results documented in this encounter Plan of Treatment Not on file documented as of this encounter Visit Diagnoses Not on filedocumented in this encounter Additional Health Concerns Assessment Noted Time PHQ-9 Depression Total Score: 13 12/26/ 023 3:22 PM CDT documented as of this encounter Care Teams Tax Compliance Agent Relationship Specialty Start Date End Date Sailaja Claudio APRN [id number] [facility] [address] [place] [address] PCP - General NURSE PRACTITIONER 04/24/23 Daniel Serrato MD [facility]. [address] [address] [place] [employer] Agent CARDIOVASCULAR DISEASE 08/30/15 documented as of this encounter
--- OUTSIDE RECORDS SUMMARY | 2024-09-28 11:31 | XMS_ITS | Data Portability ---
Author Organization [id number] Address [address] [place] [address] Assessment No assessment recorded. Plan of Treatment Reminders Order Date Submit Date Provider Last Modified By Organization Details Last Modified Time Details Appointments ANNUAL- EST 15 2025 09:30A M RAFY WHEELER MD Not available Not available Not available Lab None recorded. Referral None recorded. Procedures None recorded. Surgeries None recorded. Imaging MAMMO, screening , digital, bilateral [address] [facility], [address], [place], [address], 08/25/2024 10:20:42 Medication Orders estradiol 0.01% (0.1 mg/gram) vaginal cream [address] [facility][id number], [address], [address], 08/25/2024 10:09:48 Patient TargetsNo targets recorded. Patient InstructionsNo instructions recorded. Reason for Referral None Reported. Results Created Date Observation Date Name Description Value Unit Range Abnormal Flag Note LastModifiedBy Organization Detail LastModifiedTime 08/21/1908/10/2024 DEXA No observ ation record ed. [email or web address] [facility] [address], [place], [address], 09/22/2024 14:55:53 Result Notes None recorded. Procedures Surgical History Date Name Laterality Status Provider Name and Address Organization Details Recorded Time 02/23/20 24 Date of Last Mammogram completed [facility] 08/06/2024 15:27:00 08/06/19 24 Date of Last Pap Smear completed [facility] 08/06/2024 15:26:37 03/31/19 21 Date of Last Colonoscopy completed [facility] 08/06/2024 15:27:12 Exc skin abd add-on completed Not Available [facility] 07/29/2024 16:02:41 Breast augmentation w/implt completed Not Available [facility] 07/29/2024 16:02:41 Appendectomy completed Not Available [facility] 07/29/2024 16:02:42 tonsillectomy completed Not Available [facility] 07/29/2024 16:02:42 colonoscopy completed Not Available [facility] 07/29/2024 16:02:42 Breast Surgery completed [facility] 08/12/2024 12:25:53 Imaging Results None recorded. Procedure Notes None recorded. Medical Equipment None Reported. Allergies No known drug allergies Medications Name Sig Start Date Stop Date Status Note LastModified by Organization Details LastModified Time celecoxib 200 mg capsule TAKE 1 CAPSULE BY MOUTH EVERY DAY active Not Available Not Available No t Available cyclobenzaprine 10 mg tablet TAKE 1 TABLET BY MOUTH THREE TIMES A DAY NEEDED FOR MUSCLE SPASMS active Not Available Not Available No t Available prednisone 20 mg tablet TAKE 2 TABLETS (40 MG TOTAL) BY MOUTH EVERY MORNING FOR 5 DAYS active Not Available Not Available No t Available tramadol 50 mg tablet TAKE 1 TABLET BY MOUTH EVERY 6 HOURS NEEDED FOR PAIN active Not Available Not Available No t Available amitriptyline 10 mg tablet TAKE 0.5 TABLETS (5 MG TOTAL) BY MOUTH NIGHTLY AT BEDTIME. active Not Available Not Available No t Available baclofen 10 mg tablet TAKE 1 TABLET (10 MG TOTAL) BY MOUTH 3 (THREE) TIMES DAILY FOR 30 DAYS. active Not Available Not Available No t Available cephalexin 500 mg capsule TAKE 1 CAPSULE BY MOUTH TWICE A DAY active Not Available Not Available No t Available estradiol 0.01% (0.1 mg/gram) vaginal cream Insert 1 g twice a week by vaginal route at bedtime. 2024 active Not Available Not Available Not Avai lable naproxen 500 mg tablet TAKE 1 TABLET BY MOUTH TWICE A DAY WITH MEALS active Not Available Not Available No t Available Vitals Date Recorded Body height Body mass index (BMI) Body weight Systolic blood pressure Diastolic blood pressure Provider Name and Address Organization Details Last Updated DateTime 08/12/2024 161.29 cm 24.4 kg/m2 94826.93 g 122 mm[Hg] 68 mm[Hg] Cheryle Anders [facility] 12:30:11 Social History Question Answer Notes LastModified by [employer] Details LastModified Time Tobacco Smoking Status Never Smoker Not Available [facility] 07/29/2024 17:29:11 Do You Have An Advance Directive? No Information not available 08/12/2024 How Many Years Have You Consumed Alcohol? 50 Information not available 08/12/2024 What Is Your Level Of Caffeine Consumption? Occasional Information not available 08/12/2024 What Type Of Diet Are You Following? REGULAR Information not available 08/12/2024 What Is Your Relationship Status? Other Note: Information not available 07/29/2024 Sex: Female Functional Status Question Answer Note LastModified by [employer] Details LastModified Time Do you use any illicit or recreational drugs? No Information not available 07/29/2024 What is your level of alcohol consumption? Occasional Qty: rare; Note: Use status used: Current some day Amount used: rare; Age Start/Stop: 18/ Information not available 07/29/2024 Are you currently employed? 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 Family History Relationship Description Onset Age of this Age Resolved Age Notes LastModified by Organization Details LastModified Time Mother Mixed hypercholest erolemia and hypertriglyc eridemia Elevat ed Choles terol/ Trigly ceride s [email or web address] Not available 08/12/2024 12:23:12 Mother Transient cerebral ischemia Transi ent Ischem ic Attack (TIA) API-[email or web address] Not available 08/12/2024 12:23:12 Maternal Grandmother Cerebrovascu lar accident Stroke Not available 03/2024 17:57:22 Father Malignant neoplastic disease Cancer dad -liver sister - basal cell Not available 07/29/2024 17:57:23 Sister Malignant neoplastic disease Cancer dad -liver sister - basal cell Not available 07/29/2024 17:57:23 Sister Osteoporosis Osteop orosis pts twin Not available 07/29/2024 17:57:23 Mother Hypertensive disorder High Blood Pressu re Not available 07/29/2024 17:57:23 Sister Family history of breast cancer Family histor y of breast cancer hormon e induce d [email or web address] Not available 08/12/2024 12:23:12 Medical History Condition Response Cancer- Skin Y Cancer- Genetic screening Gynecological History Statement/Question Response Date of Last Mammogram 02/23/2024 History of Fibroids N Date of LMP 03/31/2004 Current Control Method: Menopause History of Recurrent Ovarian Cysts N Age at first intercourse 1977 If Post Menopausal, Age at Menopause 44 HPV Vaccine Not Completed Date of Last Colonoscopy 03/31/2020 Date of Last Diabetes Screening 03/31/19 19 Date of Last HPV Test 08/06/2023 Date of Last Cholesterol Screening 03/31 History of PCOS N History of Infertility N History of Cervical Dysplasia N History of Vulvar Dysplasia N Current Control Method Menopause History of Endometriosis N Sexually Active? Y History of Dysmenorrhea N Menses Monthly N Date of Last Pap Smear 08/06/2023 Sexual Problems? N History of Sexually Transmitted Infectio n N Date of Last Bone Density 05/07/16 Obstetrics History GPAL:G 2 P 2 0 0 2 Type Value Multiple Births 0 Full Term 2 Induced 0 Spontaneous 0 Premature 0 Living 2 Ectopics 0 Total 2 Immunizations Vaccine Type Date Status Note Provider Nam e and Address Organization Details Recorded Time Tdap 03/31/2012 completed Cheryle Anders [facility] 08/06/2024 15:26:18 Past Encounters Encounter ID Performer Location Encounter Start Date Encounter Closed Date Diagnosis/Indication Diagnosis SNOMED-CT Code Diagnosis ICD10 Code Diagnosis Note [id number] [address], [place] [id number] [place] [address] 08/12/2024 12:12:04 08/12/2024 12:57:27 Screening mammography 07147846 Z12.31 Gynecologi c examination 31156049 Z01.419 Yearly mammogramR egular exercise, limit processed foods and increase protein.Sc reening colonoscop yGeneral lab screening yearly Menopause present 712683 006 Z78.0 refill estradiolC onsider bone density Health Concerns Section Related Observation LastModified by Organization Detai ls LastModified Time None Recorded Concern Status LastModified by Organization Details LastModified Time None Recorded Advance Directives Directive N: Payers Insurance Date Sequence Insurance Name Policy Number Policy Dempsey Covered Member ID Dempsey Member ID Guarantor Name 08/31/2024 2 [facility] (MEDICARE SUPPLEMENT) Stephie Lazaro Marie [id number] Stephie Iveth Salazar 08/06/2024 1 [place] Stephie Lazaro Marie [id number] Stephie Lazaro Marie Notes Date Note Type Note Provider Name and Address Organization Details Recorded Time 08/12/2024 text/html 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 - McwhcReported bypatient.History:no gynecologic complaints; no change in interval history Urinary symptoms:No hematuria; No incontinence Vulvar complaints:None Vaginal complaints:none Breast:No breast pain; No breast lump; No nipple discharge Sexual complaints:No sexual complaints; Normal libido Menopausal Symptoms:No menopausal symptoms Psychological symptoms:No depression Preventive measures:Encourage self breast examination; Encourage regular exercise; Encourage no tobacco use; Encourage regular mammograms starting age 40; Up to date on colonoscopy screeningNotes:Discu ssed diet and exercise. Rose Grower offered per [facility] policy. Rose Grower was DECLINED.Patient is here for annual exam. No complaints. No postmenopausal bleedingSOme increased weight gain with stress over the last couple years. RAFY AYALA MD [address] [facility] [address], [place], [address], [facility] 08/25/2024 10:10:39 OBGyn Episode No OBEpisode recorded.
--- OUTSIDE RECORDS SUMMARY | 2024-09-28 11:31 | XMS_ITS | Encounter Summary ---
Author Organization [facility] Address [address] [place] [address] Care Team Providers Care Traffic Personnel Supervisor Name Role Phone Daniel Serrato MD Unavailable [phone] Sailaja Claudio APRN Primary Care Provider [phone] Encounter Details Date Type Department Care Team (Late st Contact Info) Description 07/06/2024 MyChart Message Enc [facility] Family & Internal Medicine [facility] [address] [place] [address] Sailaja Claudio APRN [id number] [address] Numbness and Pain Social History Tobacco Use Types Packs/Day Years [...] as of this encounter Progress Notes * Michell Salguero MA - 07/06/2024 4:43 PM CDT Please advise documented in this encounter Plan of Treatment Not on file documented as of this encounter Visit Diagnoses Not on filedocumented in this encounter Additional Health Concerns Assessment Noted Time PHQ-9 Depression Total Score: 13 023 3:22 PM CDT documented as of this encounter Care Teams Traffic Personnel Supervisor Relationship Specialty Start Date End Date Sailaja Claudio APRN [address] [address] PCP - General NURSE PRACTITIONER 04/24/23 Daniel Serrato MD [facility]. [address] [address] [place] [employer] CARDIOVASCULAR DISEASE 08/30/15 documented as of this encounter
[2024-09-28 12:17] LABS: Hematocrit 44.0 % (37.0-47.0); Hemoglobin 14.4 g/dL (12.0-15.0); Immature Granulocyte Percent A 0.4 % (0-0.5); Lymphocytes Absolute Auto 1.65 K/mm3 (0.9-3.2); Mean Corpuscular HGB Conc 32.7 g/dl (32-36); Mean Corpuscular Hemoglobin 30.0 pg (26-34); Mean Corpuscular Volume 91.7 fl (80-100); Nucleated Red Blood Cells Absolute Auto 0.000 K/mm3 (0.0-0.012); Nucleated Red Blood Cells Perc 0.0 % (0.0-0.2); Platelet Count Result 323 k/mm3 (150-375); Red Blood Count 4.80 M/mm3 (4.2-5.4); White Blood Count 5.7 K/mm3 (4.5-10.0)
[2024-09-28 12:29] LABS: Anion Gap 8 mmol/L (4-12); Blood Urea Nitrogen 13 mg/dL (7-17); Calcium 10.0 mg/dL (8.4-10.2); Carbon Dioxide 25 mmol/L (22-30); Chloride 105 mmol/L (98-107); Estimated Glomerular Filt Rate > 60; Glucose 96 mg/dL (65-110); Potassium 4.2 mmol/L (3.4-5.0); Sodium 138 mmol/L (137-145)
== END 2024-09-28 11:24 | disposition home or self-care (01) ==
PROVIDERS: PCP Family Medicine
DX: Z01.818 Encounter for other preprocedural examination (principal); I49.3 Ventricular premature depolarization; Z01.812 Encounter for preprocedural laboratory examination
CPT/HCPCS: 36415; 80048; 85025; 93005